=== PATIENT | female | born 1950 | race Caucasian/White ===

== ENCOUNTER 2019-01-02 12:20 | Inpatient (IN) ==
[2019-01-02] MEDS ORDERED: NS 1000 ML 1,000 ML IV ONE (12:29)
[2019-01-02] MEDS ORDERED: ZOFRAN INJ 4 MG VIAL IVP ONE (12:33)
[2019-01-02] MEDS ORDERED: NS 1000 ML 1,000 ML ONE (12:34)
--- NOTE | 2019-01-02 12:36 | DR.NAUSEAF ---
HPI Time Seen Time Seen by Provider: 01/02/19 12:28 Primary Care Physician Primary Care Physician: MERY Busch Chief Complaint:: PT. C/O N/V/D WITH AN ONSET OF FRIDAY. PT. C/O CRAMPS, DIZZINESS AND BEING DEHYDRATED. Source History Provided: Patient and Family Member Mode of Arrival Mode of Arrival: Ambulatory Timing Onset of Chief Complaint: 12/30/18 PMH PMH Past Medical History: Yes Past Medical History: Hyperthyroidism Past Medical History Comment: CHRON'S Past Surgical History: Yes Surgical History: Other Past Surgical History Comment: ILESTOMY Family History History of Family Medical Conditions: No Social History Does patient currently use any type of tobacco product: No Have you used tobacco products in the last 12 months: No Type of Tobacco Use: None Does any household member use tobacco: No Alcohol Use: None Do you use any recreational Drugs:: No Lives With: Spouse Lives Where: Home infectious screening In the last 2 months have you had wt loss of >10#?: NO Have you had fever, night sweats or hemotysis?: No Have you traveled outside the country in the last 6 months?: No Isolation: Standard PE Vital Signs Vitals: Temperature 98.1 F Pulse Rate [Left Brachial] 68 Pulse Rate 107 Respiratory Rate 20 Blood Pressure [Left Arm] 116/63 Blood Pressure 117/64 O2 Sat by Pulse Oximetry 97 General Limitations: No Limitations General Appearance: Alert, In No Apparent Distress and Anxious Head Head Exam: Normal Inspection, Atraumatic and Normocephalic Eyes Eye exam: Normal Appearance, PERRL and EOMI ENT ENT Exam: Normal Exam, Normal External Ear Exam and Mucous Membranes Dry Neck Neck Exam: Normal Inspection, Full ROM and Trachea Midline Chest Chest Inspection: Normal Inspection and Symmetric Chest Wall Rise Respiratory Respiratory Exam: Normal Lung Sounds Bilat Respiratory Exam: Bilateral: Clear to Auscultation Cardiovascular Cardiovascular Exam: Regular Rate and Tachycardia Abdominal Exam Abdominal Exam: Normal Inspection, Normal Bowel Sounds, Soft and Tenderness Rectal Rectal Exam: Deferred External Exam: Female: Deferred : Bimanual Exam (female): Deferred Back Back Exam: Normal Inspection and Full ROM Neurologic Neurological Exam: Alert, Oriented X3, CN II-XII Intact and Normal Gait Psychiatric Psychiatric Exam: Normal Affect and Anxious Skin Skin Exam: Warm, Dry, Intact and Normal Color COURSE Consultation Called: 12:20 ROR Labs Reviewed Result Diagrams: 01/03/19 05:15 01/03/19 05:15 Laboratory: WBC 6.8 X10^3/uL (3.6-10.0) 01/03/19 05:15 RBC 4.78 X10^6/uL (3.5-5.4) 01/03/19 05:15 Hgb 14.4 g/dL (12.0-16.0) 01/03/19 05:15 Hct 41.0 % (36.0-47.0) 01/03/19 05:15 MCV 85.7 fL (80.0-100.0) 01/03/19 05:15 MCH 30.1 pg (27.0-34.0) 01/03/19 05:15 MCHC 35.1 g/dL (33.0-35.0) H 01/03/19 05:15 RDW 13.2 % (11.6-16.5) 01/03/19 05:15 Plt Count 220 X10^3/uL (150.0-450.0) 01/03/19 05:15 MPV 9.6 fL (7.4-11.0) 01/03/19 05:15 Neut % (Auto) 61.2 % (42.0-75.0) 01/03/19 05:15 Lymph % (Auto) 21.9 % (21.0-51.0) 01/03/19 05:15 [place] % (Auto) 15.3 % (0.0-13.0) H 01/03/19 05:15 Eos % (Auto) 1.2 % (0.9-2.9) 01/03/19 05:15 Baso % (Auto) 0.4 % (0.2-1.0) 01/03/19 05:15 Neut # (Auto) 4.1 x10^3/uL (2.2-4.8) 01/03/19 05:15 Lymph # (Auto) 1.5 X10^3/uL (1.3-2.9) 01/03/19 05:15 [place] # (Auto) 1.0 x10^3/uL (0.3-0.8) H 01/03/19 05:15 Eos # (Auto) 0.1 x10^3/uL (0.0-0.2) 01/03/19 05:15 Baso # (Auto) 0.0 X10^3/uL (0.0-0.1) 01/03/19 05:15 Absolute Nucleated RBC 0.0 /100WBC 01/03/19 05:15 Sodium 126 mmol/L (136-145) L 01/03/19 05:15 Corrected Sodium TNP 01/03/19 05:15 Potassium 4.4 mmol/L (3.5-5.1) 01/03/19 05:15 Chloride 91 mmol/L (98-107) L 01/03/19 05:15 Carbon Dioxide 23.1 mmol/L (21-32) 01/03/19 05:15 BUN 28 mg/dL (7-18) H 01/03/19 05:15 Creatinine 1.58 mg/dL (0.55-1.02) H 01/03/19 05:15 Est GFR (MDRD) Af Amer 42 (>60) L 01/03/19 05:15 Est GFR (MDRD) Non-Af 35 (>60) L 01/03/19 05:15 Glucose 94 mg/dL (65-99) 01/03/19 05:15 Calcium 9.2 mg/dL (8.5-10.1) 01/03/19 05:15 Corrected Calcium TNP 01/03/19 05:15 Total Bilirubin 0.60 mg/dL (0.2-1.0) 01/03/19 05:15 AST 49 Units/L (15-37) H 01/03/19 05:15 ALT 28 Units/L (12-78) 01/03/19 05:15 Alkaline Phosphatase 81 Units/L (46-116) 01/03/19 05:15 C-Reactive Protein 3.10 mg/L (0-3.0) H 01/02/19 12:32 Total Protein 7.4 g/dL (6.4-8.2) 01/03/19 05:15 Albumin 3.6 g/dL (3.4-5.0) 01/03/19 05:15 Globulin 3.8 g/dL (2.5-4.5) 01/03/19 05:15 Albumin/Globulin Ratio 0.9 Ratio (1.1-2.1) L 01/03/19 05:15 Specimen Type Clean catch urine 01/02/19 14:20 Urine Color Yellow (YELLOW) 01/02/19 14:20 Urine Appearance Clear (CLEAR) 01/02/19 14:20 Urine pH 5.0 (5.0 - 8.0) 01/02/19 14:20 Ur Specific [place] 1.010 (1.000-1.030) 01/02/19 14:20 Urine Protein 1+ (NEGATIVE) 01/02/19 14:20 Urine Glucose (UA) Negative (NEGATIVE) 01/02/19 14:20 Urine Ketones Negative (NEGATIVE) 01/02/19 14:20 Urine Occult Blood 1+ (NEGATIVE) 01/02/19 14:20 Urine Nitrite Negative (NEGATIVE) 01/02/19 14:20 Urine Bilirubin Negative (NEGATIVE) 01/02/19 14:20 Urine Urobilinogen Normal (NORMAL) 01/02/19 14:20 Ur Leukocyte Esterase Negative (NEGATIVE) 01/02/19 14:20 Urine RBC None seen /HPF (NONE SEEN) 01/02/19 14:20 Urine WBC None seen /HPF (NONE SEEN) 01/02/19 14:20 Ur Squamous Epith Cells Rare /HPF (NEGATIVE) 01/02/19 14:20 Amorphous Sediment Trace /HPF (NEGATIVE) 01/02/19 14:20 Urine Bacteria Negative /HPF (NEGATIVE) 01/02/19 14:20 Ur Culture Indicated? No/not indicated 01/02/19 14:20 Diagnosis Discharge Problem: Nausea and vomiting in adult patient, Acute hyponatremia, Hypochloremia, Acute prerenal azotemia, Metabolic acidosis
[2019-01-02] MEDS ORDERED: ZOFRAN INJ 4 MG VIAL ONE (12:38)
[2019-01-02 12:42] LABS: BASOPHILS % (AUTO) 0.4 % (0.2-1.0); EOSINOPHILS % (AUTO) 0.2 % (0.9-2.9); HEMATOCRIT 46.6 % (36.0-47.0); HEMOGLOBIN 16.3 g/dL (12.0-16.0); LYMPHOCYTES # (AUTO) 1.3 X10^3/uL (1.3-2.9); LYMPHOCYTES % (AUTO) 15.3 % (21.0-51.0); MEAN CORPUSCULAR VOLUME 85.7 fL (80.0-100.0); MEAN PLATELET VOLUME 8.9 fL (7.4-11.0); MONOCYTES # (AUTO) 1.1 x10^3/uL (0.3-0.8); MONOCYTES % (AUTO) 13.1 % (0.0-13.0); NEUTROPHILS # (AUTO) 6.2 x10^3/uL (2.2-4.8); PLATELET COUNT 283 X10^3/uL (150.0-450.0); RED BLOOD COUNT 5.44 X10^6/uL (3.5-5.4); RED CELL DISTRIBUTION WIDTH 13.2 % (11.6-16.5); WHITE BLOOD COUNT 8.7 X10^3/uL (3.6-10.0)
[2019-01-02 12:51] LABS: BLOOD UREA NITROGEN 37 mg/dL (7-18); CALCIUM 10.1 mg/dL (8.5-10.1); COR NA(FOR HYPERGLY) 116 mmol/L (136-145); CREATININE 2.53 mg/dL (0.55-1.02); eGFR NON BLACK RACES 20 (>60)
[2019-01-02 12:55] LABS: ALANINE AMINOTRANSFERASE 34 Units/L (12-78); ALBUMIN 4.4 g/dL (3.4-5.0); ALKALINE PHOSPHATASE 94 Units/L (46-116); ASPARTATE AMINO TRANSFERASE 62 Units/L (15-37); TOTAL PROTEIN 9.1 g/dL (6.4-8.2)
[2019-01-02 13:12] LABS: CHLORIDE 78 mmol/L (98-107); SODIUM 115 mmol/L (136-145)
--- NOTE | 2019-01-02 13:56 | RAD ---
Examination: Portable AP chest History: Abdominal pain Findings: Normal heart size with clear lungs and pleural spaces. Impression: No significant or acute chest abnormality identified. Reported By:
[2019-01-02 14:50] LABS: BILIRUBIN,URINE NEGATIVE (NEGATIVE); BLOOD/HEMOGLOBIN,URINE 1+ (NEGATIVE); GLUCOSE, URINE NEGATIVE (NEGATIVE); KETONES,URINE NEGATIVE (NEGATIVE); LEUKOCYTE ESTERASE ,URINE NEGATIVE (NEGATIVE); NITRITES,URINE NEGATIVE (NEGATIVE); PROTEIN,URINE 1+ (NEGATIVE); UROBILINOGEN,URINE NORMAL (NORMAL)
[2019-01-02] MEDS ORDERED: NS 1000 ML 1,000 ML IV SCH (15:00)
[2019-01-02] MEDS ORDERED: PHARMACY CONSULT - DOSE _____ XX SCH (15:00)
[2019-01-02 15:01] LABS: APPEARANCE,URINE CLEAR (CLEAR); COLOR,URINE YELLOW (YELLOW)
[2019-01-02 15:08] LABS: RBC,URINE NONE SEEN /HPF (NONE SEEN); SQUAMOUS EPITHELIAL CELL,UR RARE /HPF (NEGATIVE)
[2019-01-02 15:09] LABS: AMORPHOUS SEDIMENT,UR TRACE /HPF (NEGATIVE); BACTERIA,URINE NEGATIVE /HPF (NEGATIVE)
[2019-01-02] MEDS ORDERED: ZOFRAN INJ 4 MG VIAL IVP PRN (15:30)
[2019-01-02] MEDS: NS 1000 ML 1,000 ML IV SCH (15:35)
[2019-01-02] MEDS: LOVAZA PO SCH (20:12)
[2019-01-02] MEDS: PROTONIX INJ 40 MG VIAL IVP SCH (20:12)
[2019-01-03] MEDS ORDERED: TYLENOL 325 MG TAB PO PRN (01:35)
[2019-01-03] MEDS: NS 1000 ML 1,000 ML IV SCH ×4 (01:48→20:09)
[2019-01-03] MEDS: TYLENOL 325 MG TAB PO ONE (03:27)
[2019-01-03 06:17] LABS: BASOPHILS % (AUTO) 0.4 % (0.2-1.0); EOSINOPHILS # (AUTO) 0.1 x10^3/uL (0.0-0.2); EOSINOPHILS % (AUTO) 1.2 % (0.9-2.9); HEMOGLOBIN 14.4 g/dL (12.0-16.0); LYMPHOCYTES # (AUTO) 1.5 X10^3/uL (1.3-2.9); LYMPHOCYTES % (AUTO) 21.9 % (21.0-51.0); MEAN CORPUSCULAR HEMOGLOBIN 30.1 pg (27.0-34.0); MEAN CORPUSCULAR HGB CONC 35.1 g/dL (33.0-35.0); MEAN CORPUSCULAR VOLUME 85.7 fL (80.0-100.0); MEAN PLATELET VOLUME 9.6 fL (7.4-11.0); MONOCYTES % (AUTO) 15.3 % (0.0-13.0); NEUTROPHILS # (AUTO) 4.1 x10^3/uL (2.2-4.8); NEUTROPHILS % (AUTO) 61.2 % (42.0-75.0); PLATELET COUNT 220 X10^3/uL (150.0-450.0); RED BLOOD COUNT 4.78 X10^6/uL (3.5-5.4); RED CELL DISTRIBUTION WIDTH 13.2 % (11.6-16.5); WHITE BLOOD COUNT 6.8 X10^3/uL (3.6-10.0)
[2019-01-03 06:33] LABS: ALANINE AMINOTRANSFERASE 28 Units/L (12-78); ALBUMIN 3.6 g/dL (3.4-5.0); ALKALINE PHOSPHATASE 81 Units/L (46-116); ASPARTATE AMINO TRANSFERASE 49 Units/L (15-37); BLOOD UREA NITROGEN 28 mg/dL (7-18); CALCIUM 9.2 mg/dL (8.5-10.1); CARBON DIOXIDE 23.1 mmol/L (21-32); CREATININE 1.58 mg/dL (0.55-1.02); TOTAL PROTEIN 7.4 g/dL (6.4-8.2); eGFR NON BLACK RACES 35 (>60)
[2019-01-03 07:03] LABS: CHLORIDE 91 mmol/L (98-107)
[2019-01-03 07:05] LABS: SODIUM 126 mmol/L (136-145)
[2019-01-03] MEDS: VITAMIN C PO SCH (09:20)
[2019-01-03] MEDS: SYNTHROID 25 mcg TAB PO SCH (09:20)
[2019-01-03] MEDS: PROTONIX INJ 40 MG VIAL IVP SCH ×2 (09:20→20:09)
[2019-01-03] MEDS: LOVAZA PO SCH ×2 (09:20→20:10)
--- NOTE | 2019-01-03 12:40 | PCM.PROG ---
Progress Note - Progress Note for Day of Date of Exam: 01/03/19 - Subjective Subjective: 68WF ER ADMISSIONON 01/02 WITH HYPONATREMIA FOLLOWING AND GI ILLNESS. PT HAS PMH OF ILEOSTOMY WITH REOCCURRING HYPONATREMIA. PTS NA UP TO 126 THIS AM. PT DENIES ANY ABDOMINA PAIN. CO PREVIOUS DIZZINESS, STABLE NOW. PLAN TO CONTINUE GENTLE IV HYDRATION - Past Medical Family Social History Past Med/Fam/Surg Hx: No changes since H&P Allergies: Allergies aspirin Allergy (Verified 01/02/19 12:27) - Review of Systems ROS: No change since H&P - Vital Signs and I&O's Vital Signs: Temperature 97.6 F Pulse Rate [Left Brachial] 71 Pulse Rate 107 Respiratory Rate 18 Blood Pressure [Left Arm] 104/55 Blood Pressure 117/64 O2 Sat by Pulse Oximetry 97 Intake and Output: Intake & Output 01/01/19 01/02/19 01/03/19 01/04/19 11:59 11:59 11:59 11:59 Intake Total 1959 Output Total Balance 1956 - Physical Exam Oriented: Normal Eyes: Normal Ear: Normal Nose: Normal Throat: Normal Respiratory: Normal Cardiovascular: Normal : Normal Auscultation: Bowel Sounds: Normal Palpation: Normal Tenderness: Normal Skin: Other (ILEOSTOMY) Musculoskeletal: Normal Psychiatric: Normal Mood Description: Calm Speech Pattern: Clear, Appropriate - Laboratory and Diagnostics Result Diagrams: 01/03/19 05:15 01/03/19 05:15 Labs: Laboratory WBC 6.8 X10^3/uL (3.6-10.0) 01/03/19 05:15 RBC 4.78 X10^6/uL (3.5-5.4) 01/03/19 05:15 Hgb 14.4 g/dL (12.0-16.0) 01/03/19 05:15 Hct 41.0 % (36.0-47.0) 01/03/19 05:15 MCV 85.7 fL (80.0-100.0) 01/03/19 05:15 MCH 30.1 pg (27.0-34.0) 01/03/19 05:15 MCHC 35.1 g/dL (33.0-35.0) H 01/03/19 05:15 RDW 13.2 % (11.6-16.5) 01/03/19 05:15 Plt Count 220 X10^3/uL (150.0-450.0) 01/03/19 05:15 MPV 9.6 fL (7.4-11.0) 01/03/19 05:15 Neut % (Auto) 61.2 % (42.0-75.0) 01/03/19 05:15 Lymph % (Auto) 21.9 % (21.0-51.0) 01/03/19 05:15 [place] % (Auto) 15.3 % (0.0-13.0) H 01/03/19 05:15 Eos % (Auto) 1.2 % (0.9-2.9) 01/03/19 05:15 Baso % (Auto) 0.4 % (0.2-1.0) 01/03/19 05:15 Neut # (Auto) 4.1 x10^3/uL (2.2-4.8) 01/03/19 05:15 Lymph # (Auto) 1.5 X10^3/uL (1.3-2.9) 01/03/19 05:15 [place] # (Auto) 1.0 x10^3/uL (0.3-0.8) H 01/03/19 05:15 Eos # (Auto) 0.1 x10^3/uL (0.0-0.2) 01/03/19 05:15 Baso # (Auto) 0.0 X10^3/uL (0.0-0.1) 01/03/19 05:15 Absolute Nucleated RBC 0.0 /100WBC 01/03/19 05:15 Sodium 126 mmol/L (136-145) L 01/03/19 05:15 Corrected Sodium TNP 01/03/19 05:15 Potassium 4.4 mmol/L (3.5-5.1) 01/03/19 05:15 Chloride 91 mmol/L (98-107) L 01/03/19 05:15 Carbon Dioxide 23.1 mmol/L (21-32) 01/03/19 05:15 BUN 28 mg/dL (7-18) H 01/03/19 05:15 Creatinine 1.58 mg/dL (0.55-1.02) H 01/03/19 05:15 Est GFR (MDRD) Af Amer 42 (>60) L 01/03/19 05:15 Est GFR (MDRD) Non-Af 35 (>60) L 01/03/19 05:15 Glucose 94 mg/dL (65-99) 01/03/19 05:15 Calcium 9.2 mg/dL (8.5-10.1) 01/03/19 05:15 Corrected Calcium TNP 01/03/19 05:15 Total Bilirubin 0.60 mg/dL (0.2-1.0) 01/03/19 05:15 AST 49 Units/L (15-37) H 01/03/19 05:15 ALT 28 Units/L (12-78) 01/03/19 05:15 Alkaline Phosphatase 81 Units/L (46-116) 01/03/19 05:15 C-Reactive Protein 3.10 mg/L (0-3.0) H 01/02/19 12:32 Total Protein 7.4 g/dL (6.4-8.2) 01/03/19 05:15 Albumin 3.6 g/dL (3.4-5.0) 01/03/19 05:15 Globulin 3.8 g/dL (2.5-4.5) 01/03/19 05:15 Albumin/Globulin Ratio 0.9 Ratio (1.1-2.1) L 01/03/19 05:15 Specimen Type Clean catch urine 01/02/19 14:20 Urine Color Yellow (YELLOW) 01/02/19 14:20 Urine Appearance Clear (CLEAR) 01/02/19 14:20 Urine pH 5.0 (5.0 - 8.0) 01/02/19 14:20 Ur Specific [place] 1.010 (1.000-1.030) 01/02/19 14:20 Urine Protein 1+ (NEGATIVE) 01/02/19 14:20 Urine Glucose (UA) Negative (NEGATIVE) 01/02/19 14:20 Urine Ketones Negative (NEGATIVE) 01/02/19 14:20 Urine Occult Blood 1+ (NEGATIVE) 01/02/19 14:20 Urine Nitrite Negative (NEGATIVE) 01/02/19 14:20 Urine Bilirubin Negative (NEGATIVE) 01/02/19 14:20 Urine Urobilinogen Normal (NORMAL) 01/02/19 14:20 Ur Leukocyte Esterase Negative (NEGATIVE) 01/02/19 14:20 Urine RBC None seen /HPF (NONE SEEN) 01/02/19 14:20 Urine WBC None seen /HPF (NONE SEEN) 01/02/19 14:20 Ur Squamous Epith Cells Rare /HPF (NEGATIVE) 01/02/19 14:20 Amorphous Sediment Trace /HPF (NEGATIVE) 01/02/19 14:20 Urine Bacteria Negative /HPF (NEGATIVE) 01/02/19 14:20 Ur Culture Indicated? No/not indicated 01/02/19 14:20 - Plan (1) Acute hyponatremia Status: Acute Plan: GENTLE IV HYDRATION, STRICT I & OS. BP MONITORING. REPEAT AM CMP (2) Ileostomy care Status: Acute (3) Nausea and vomiting in adult patient Status: Acute
[2019-01-03 15:30] VITALS: BMI 19.6
[2019-01-04] MEDS: NS 1000 ML 1,000 ML IV SCH ×2 (03:51→10:44)
[2019-01-04 06:31] LABS: BASOPHILS # (AUTO) 0.1 X10^3/uL (0.0-0.1); BASOPHILS % (AUTO) 0.9 % (0.2-1.0); EOSINOPHILS # (AUTO) 0.1 x10^3/uL (0.0-0.2); EOSINOPHILS % (AUTO) 1.9 % (0.9-2.9); HEMATOCRIT 40.4 % (36.0-47.0); HEMOGLOBIN 13.8 g/dL (12.0-16.0); LYMPHOCYTES # (AUTO) 2.1 X10^3/uL (1.3-2.9); LYMPHOCYTES % (AUTO) 28.2 % (21.0-51.0); MEAN CORPUSCULAR HEMOGLOBIN 30.1 pg (27.0-34.0); MEAN CORPUSCULAR HGB CONC 34.2 g/dL (33.0-35.0); MEAN CORPUSCULAR VOLUME 87.9 fL (80.0-100.0); MEAN PLATELET VOLUME 9.8 fL (7.4-11.0); MONOCYTES # (AUTO) 0.9 x10^3/uL (0.3-0.8); MONOCYTES % (AUTO) 12.6 % (0.0-13.0); NEUTROPHILS # (AUTO) 4.2 x10^3/uL (2.2-4.8); NEUTROPHILS % (AUTO) 56.4 % (42.0-75.0); PLATELET COUNT 219 X10^3/uL (150.0-450.0); RED BLOOD COUNT 4.59 X10^6/uL (3.5-5.4); RED CELL DISTRIBUTION WIDTH 13.4 % (11.6-16.5); WHITE BLOOD COUNT 7.4 X10^3/uL (3.6-10.0)
[2019-01-04 06:41] LABS: ALANINE AMINOTRANSFERASE 25 Units/L (12-78); ALBUMIN 3.2 g/dL (3.4-5.0); ALKALINE PHOSPHATASE 82 Units/L (46-116); ASPARTATE AMINO TRANSFERASE 32 Units/L (15-37); BLOOD UREA NITROGEN 24 mg/dL (7-18); CALCIUM 8.9 mg/dL (8.5-10.1); CARBON DIOXIDE 20.7 mmol/L (21-32); CHLORIDE 102 mmol/L (98-107); COR CA(FOR HYPOALB) 9.5 mg/dL (8.5-10.1); CREATININE 1.34 mg/dL (0.55-1.02); SODIUM 134 mmol/L (136-145); TOTAL PROTEIN 6.8 g/dL (6.4-8.2); eGFR NON BLACK RACES 42 (>60)
[2019-01-04] MEDS: VITAMIN C PO SCH (08:34)
[2019-01-04] MEDS: LOVAZA PO SCH (08:34)
[2019-01-04] MEDS: PROTONIX INJ 40 MG VIAL IVP SCH (08:34)
[2019-01-04] MEDS: SYNTHROID 25 mcg TAB PO SCH (09:00)
[2019-01-04] MEDS: TYLENOL 325 MG TAB PO ONE (09:05)
[2019-01-04 16:03] VITALS: BP 103/55
== END 2019-01-04 16:05 | disposition home or self-care (01) | DRG 641 ==
LOC: ER 12:24 → MED/SURG 14:12
PROVIDERS: ADMIT Internal Medicine; ATTEND Internal Medicine
DX: E86.0 Dehydration; E87.2 Acidosis; K52.89 Other specified noninfective gastroenteritis and colitis; Z93.2 Ileostomy status; R19.7 Diarrhea, unspecified; K50.90 Crohn's disease, unspecified, without complications; R79.89 Other specified abnormal findings of blood chemistry; R53.1 Weakness; R11.2 Nausea with vomiting, unspecified; E03.8 Other specified hypothyroidism; N17.8 Other acute kidney failure; E87.1 Hypo-osmolality and hyponatremia
CPT/HCPCS: 36415; 71010; 71045; 80053; 81001; 84295; 85025; 86140; 93005; 94760; 96365; 99284; A4216; A4222; C9113; J2405; J3490; J7030